=== PATIENT | male | born 1995 | race Two or more races ===

== ENCOUNTER 2020-07-23 23:16 | Emergency (ER) | payer OTHER, SELFPAY ==
[2020-07-23 23:19] VITALS: BP 148/105; PULSE 86; RESP 16; TEMP 36.3; O2SAT 98; BMI 33.3
--- NOTE | 2020-07-24 00:12 | ED_ITS ---
HPI - Back Pain/Injury General Chief Complaint: Back Pain/Injury Stated Complaint: Back Pain Time Seen by Provider: 07/24/20 00:11 History of Present Illness HPI Narrative: Patient is a 24-year-old male works and a [employer]. Lots of lifting at work. Complaining of lower back pain. There is no bowel urinary incontinence. Today's no focal weakness. Patient denies any radiation of pain down the legs. No fever no chills no cough no congestion or upper respiratory symptoms. No history of IV drug use no point tenderness. Patient from home. No trauma Related Data Previous Rx's Medication Instructions Recorded carisoprodol [Soma] 350 mg PO TID PRN #20 tab 07/24/20 ibuprofen 400 mg PO Q6H PRN #20 tab 07/24/20 Allergies Allergy/AdvReac Type Severity Reaction Status Date / Time feathers [FEATHERS] Allergy Unknown UNKNOWN Unverified 05/04/20 16:36 [place] [LIMES] Allergy Unknown UNKNOWN Unverified 05/04/20 16:36 Review of Systems Review of Systems: Constitutional: No Weight loss, No Fever, No Chills, No Night Sweats, No Fatigue, No Malaise ENT/Mouth: No Hearing loss, No Ear Pain, No Nasal Congestion, No Sinus Pain, No Hoarseness, No sore throat, No Rhinorrhea, No Swallowing Difficulty Eyes: No Eye Pain, No Swelling, No Redness, No Foreign Body, No Discharge, No Vision Changes Cardiovascular: No Chest Pain, No SOB, No Dyspnea on Exertion, No Orthopnea, No Edema, No Palpitations Respiratory: No Cough, No Sputum, No Wheezing, No Smoke Exposure, No Dyspnea Gastrointestinal: No Nausea, No Vomiting, No Diarrhea, No Constipation, No abdominal Pain, No Hematochezia, No Melena Genitourinary: no irregular bleeding, No Dysuria, No Urinary Frequency, No Hematuria, No Urinary Incontinence, No Urgency, No Flank Pain, No Urinary Flow Changes, No Hesitancy Musculoskeletal: No joint pain, No Myalgias, No Joint Swelling Skin: No Skin Lesions, No rash Neuro: No Weakness, No Numbness, No Paresthesias, No Loss of Consciousness, No Dizziness, No Headache Psych: No Anxiety/Panic, No Depression, No SI/HI/AH/VH, No Social Issues, Heme/Lymph: No Bruising, No Bleeding,No Lymphadenopathy Endocrine: No Polyuria, No Polydipsia, No Temperature Intolerance [facility] Past Medical History Medical History Asthma Lumbar sprain Social History Social History Advance Directives: No Advance Directives Information Provided: Yes Physical Exam Vital Signs: Vital Signs: Last Vital Signs Temp 97.3 F 07/23/20 23:19 Pulse 86 07/23/20 23:19 Resp 16 07/23/20 23:19 BP 148/105 H 07/23/20 23:19 Pulse Ox 98 07/23/20 23:19 Body Mass Index 33.3 Appearance: Alert. Oriented X3. No acute distress. Eyes: Pupils equal, round and reactive to light. ENT: Pharynx normal. Neck: Normal inspection. Neck supple. No lymph nodes noted. No crepitus CVS: Normal heart rate and rhythm. Pulses normal. Normal S1 and S2 Respiratory: No respiratory distress. Breath sounds normal. No Wheezing. No rales Abdomen: Soft and nontender. No rigidity. No distention. good BS x4 Skin: Skin warm and dry. Normal skin color. Normal skin turgor. Extremities: No lower extremity edema. Neurovascular intact to all extremities. No Lacerations. No Rash Neuro: Oriented X 3. No motor deficit. No sensory deficit. Moving all extermities. No slurred speech. Sensation in the lower extremity intact bilaterally. Examination of the back showed no point spinal tenderness. Positive paraspinal muscle tenderness elicited. MDM - Back Pain/Injury MDM Narrative Medical decision making narrative: Patient has no trauma no bowel urinary incontinence no focal weakness. No evidence for cord acquire and a. will discharge patient home with some pain medication. Muscle relaxant. Close follow-up on an outpatient basis. A few days off from work. In stable condition. Differential Diagnosis Differential diagnosis: Likely lumbar radiculopathy and strain of lumbar region Discharge Plan Discharge Clinical Impression: Strain of lumbar region Patient Disposition: Home, Self-Care Instructions: Acute Low Back Pain (ED) Prescriptions: New ibuprofen 400 mg tablet 400 mg PO Q6H PRN (Reason: pain) Qty: 20 RF: 0 carisoprodol [Soma] 350 mg tablet 350 mg PO TID PRN (Reason: muscle pain) Qty: 20 RF: 0 Stand Alone Forms: Work/School Release
== END 2020-07-24 00:24 | disposition home or self-care (01) ==
PROVIDERS: Emergency Provider Emergency Medicine Emergency Medical Services
DX: S39.012A Strain of muscle, fascia and tendon of lower back, initial encounter (principal); X50.0XXA Overexertion from strenuous movement or load, initial encounter; Y93.9 Activity, unspecified; Y92.59 Other trade areas as the place of occurrence of the external cause; Y99.0 Civilian activity done for income or pay
CPT/HCPCS: 99283

== ENCOUNTER 2020-10-29 21:48 | Emergency (ER) | payer OTHER, SELFPAY ==
--- NOTE | ~2020-10-29 | XR_ITS ---
EXAMINATION: XR CHEST CLINICAL INFORMATION: Wheezing and cough. COMPARISON: None TECHNIQUE: Frontal portable view of the chest was obtained. 10:41 PM FINDINGS: No significant abnormality is noted involving the heart, lungs, mediastinum, bony thorax or soft tissues. XR/XR chest 1V IMPRESSION: Unremarkable examination.
[2020-10-29 21:52] VITALS: PULSE 76; RESP 18; TEMP 36.4; O2SAT 98; BMI 38.9
--- NOTE | 2020-10-29 22:48 | ED.ASTHMA ---
HPI - Asthma General Chief Complaint: Asthma Stated Complaint: Asthma Time Seen by Provider: 10/29/20 22:45 Source: patient Mode of arrival: ambulatory History of Present Illness HPI Narrative: This is a 25-year-old male with history of asthma comes in with mild symptoms increasing over the past couple of days without associated fevers, chills, sore throat, cough but describes some mild chest tightness without recent travel or calf swelling/tenderness. In addition, he denies any GI or symptoms. Related Data Previous Rx's Medication Instructions Recorded albuterol sulfate [Ventolin HFA] 2 puff INHALATION Q4-6H PRN #1 ea 10/30/20 Allergies Allergy/AdvReac Type Severity Reaction Status Date / Time [place] [LIMES] Allergy Severe Anaphylaxis Verified 10/29/20 21:51 feathers [FEATHERS] Allergy Mild Rash Verified 10/29/20 21:51 Review of Systems Review of Systems: Pertinent positives and negatives as stated in HPI 10 point review of systems is otherwise negative. PMFSH Past Medical History Source: nursing notes reviewed Medical History Anxiety Asthma Lumbar sprain Social History Social History Smoking Status: Current every day smoker Use of substances other than those prescribed or required for medical reasons: Yes Substance Use Type: Marijuana Substance Use Frequency: Occasionally Advance Directives: No Advance Directives Information Provided: Yes Physical Exam Vital Signs: Vital Signs: Last Vital Signs Temp 97.5 F 10/29/20 21:52 Pulse 76 10/29/20 21:52 Resp 18 10/29/20 21:52 Pulse Ox 98 10/29/20 21:52 Body Mass Index 38.9 VITAL SIGNS: Reviewed. GENERAL: Well developed, well nourished, in no acute distress. HEAD: Normocephalic/atraumatic, NOSE: Nares patent bilateral OROPHARYNX: no oral lesions noted, posterior pharynx clear NECK: Supple, no adenopathy LUNGS: Minimal wheeze on expiration without tachypnea, hypoxia and currently is able to speak in full sentences SpO2<98> CARDIOVASCULAR: Regular rate and rhythm without noted murmurs ABDOMEN: Soft, non-tender, non-distended with bowel sounds. NEUROLOGIC: Alert and oriented x 4. Course Course Course Narrative: This is a 25-year-old male with history and clinical presentation consistent with missed medication for underlying asthma presentation not consistent with acute exacerbation, will provide albuterol treatment here in the emergency department and ensure the patient has an inhaler at the time of discharge. On re-evaluation patient reports complete resolution of symptoms and on focal exam no evidence of wheezing. He was discharged in stable condition. Discharge Plan Discharge Clinical Impression: Asthma Qualifiers: Asthma severity: mild Asthma persistence: unspecified Asthma complication type: uncomplicated Qualified Code(s): J45.909 - Unspecified asthma, uncomplicated Patient Disposition: Home, Self-Care Instructions: Asthma (ED) Additional Instructions: Do not hesitate to return to the emergency department should you experience any acute worsening of your symptoms. Prescriptions: New albuterol sulfate [Ventolin HFA] 90 mcg/actuation HFA aerosol inhaler 2 puff inhalation Q4-6H PRN (Reason: shortness of breath or wheezing) Qty: 1 RF: 0 Referrals: Charity Hill MD [Primary Care Provider] - 2 days (Re-evaluation for asthma)
[2020-10-29] MEDS: Albuterol Sulfate 90 MCG 8 GM INHALER 4 PUFF INHALE (23:05)
== END 2020-10-30 00:48 | disposition home or self-care (01) ==
PROVIDERS: Emergency Provider Student in an Organized Health Care Education/Training Program; PCP Internal Medicine
DX: J45.909 Unspecified asthma, uncomplicated (principal); F12.90 Cannabis use, unspecified, uncomplicated; F17.200 Nicotine dependence, unspecified, uncomplicated; Z91.14 Patient's other noncompliance with medication regimen; Z71.6 Tobacco abuse counseling; Z79.899 Other long term (current) drug therapy
CPT/HCPCS: 71045; 99284

== ENCOUNTER 2021-01-01 01:37 | Emergency (ER) | payer OTHER, SELFPAY ==
[2021-01-01 01:42] VITALS: BP 136/88; PULSE 80; RESP 16; TEMP 36.9; O2SAT 96; BMI 33.3
--- NOTE | 2021-01-01 02:03 | ED_ITS ---
HPI - SOB/Dyspnea General Chief Complaint: Dyspnea Stated Complaint: asthma Time Seen by Provider: 01/01/21 01:58 Source: patient Mode of arrival: ambulatory Limitations: no limitations History of Present Illness HPI Narrative: Patient comes emergency room complaining of an asthma exacerbation. Patient states over last 2 days, he has been having seasonal allergies which have been triggering his asthma. Patient complaining of itchy eyes. Patient states he only has an albuterol inhaler, has not been taking nebulizations or prednisone. Patient denies chest pain. Related Data Previous Rx's Medication Instructions Recorded albuterol sulfate [Ventolin HFA] 2 puff INHALATION Q4-6H PRN #1 ea 10/30/20 albuterol sulfate 2 inh INHALATION Q4H PRN #1 ea 01/01/21 prednisone 50 mg PO DAILY #4 tab 01/01/21 Allergies Allergy/AdvReac Type Severity Reaction Status Date / Time [place] [LIMES] Allergy Severe Anaphylaxis Verified 10/29/20 21:51 feathers [FEATHERS] Allergy Mild Rash Verified 10/29/20 21:51 Review of Systems Review of Systems: Constitutional : No Weight loss, No Fever, No Chills, No Night Sweats, No Fatigue, No Malaise ENT/Mouth : No Hearing loss, No Ear Pain, mild Nasal Congestion, No Sinus Pain, No Hoarseness, No sore throat, No Rhinorrhea, No Swallowing Difficulty, complaining of itchy eyes Eyes: No Eye Pain, No Swelling, No Redness, No Foreign Body, No Discharge, No Vision Changes Cardiovascular : No Chest Pain, No SOB, No Dyspnea on Exertion, No Orthopnea, No Edema, No Palpitations Respiratory : No Cough, No Sputum, complaining of, No Smoke Exposure, No Dyspnea Gastrointestinal : No Nausea, No Vomiting, No Diarrhea, No Constipation, No abdominal Pain, No Hematochezia, No Melena Genitourinary : no irregular bleeding, No Dysuria, No Urinary Frequency, No Hematuria, No Urinary Incontinence, No Urgency, No Flank Pain, No Urinary Flow Changes, No Hesitancy Musculoskeletal : No joint pain, No Myalgias, No Joint Swelling Skin : No Skin Lesions, No rash Neuro : No Weakness, No Numbness, No Paresthesias, No Loss of Consciousness, No Dizziness, No Headache Psych : No Anxiety/Panic, No Depression, No SI/HI/AH/VH, No Social Issues, Heme/Lymph: No Bruising, No Bleeding,No Lymphadenopathy Endocrine : No Polyuria, No Polydipsia, No Temperature Intolerance [facility] Past Medical History Medical History Anxiety Asthma Lumbar sprain Social History Social History Alcohol intake: never Smoking Status: Current every day smoker Smoked in Last 30 Days: Yes Use of substances other than those prescribed or required for medical reasons: Yes Substance Use Type: Marijuana Substance Use Frequency: Occasionally Advance Directives: No Advance Directives Information Provided: No Physical Exam Vital Signs: Vital Signs: Last Vital Signs Temp 98.5 F 01/01/21 01:42 Pulse 66 01/01/21 02:19 Resp 16 01/01/21 01:42 BP 136/88 01/01/21 01:42 Pulse Ox 96 01/01/21 01:42 Body Mass Index 33.3 Course Course Course Narrative: Patient states that he feels much better. On physical exam patient is no longer wheezing, oxygen saturation 99% on room air Discharge Plan Discharge Clinical Impression: Asthma with exacerbation Qualifiers: Asthma severity: unspecified severity Asthma persistence: unspecified Qualified Code(s): J45.901 - Unspecified asthma with (acute) exacerbation Patient Disposition: Home, Self-Care Instructions: Asthma (ED) Additional Instructions: Please follow-up with your primary care physician tomorrow. If you have any worsening or new symptoms, please return to the emergency room or call 911 Prescriptions: New albuterol sulfate 90 mcg/actuation aerosol powdr breath activated 2 inh inhalation Q4H PRN (Reason: shortness of breath or wheezing) Qty: 1 RF: 0 prednisone 50 mg tablet 50 mg PO DAILY Qty: 4 RF: 0 No Action albuterol sulfate [Ventolin HFA] 90 mcg/actuation HFA aerosol inhaler 2 puff inhalation Q4-6H PRN (Reason: shortness of breath or wheezing) Qty: 1 RF: 0
[2021-01-01] MEDS: predniSONE 20 MG TABLET 60 MG PO (02:07)
[2021-01-01] MEDS: Albuterol Sulfate (0.083%) 2.5 MG/3 ML VIAL.NEB 5 MG INHALE (02:15)
[2021-01-01 02:19] VITALS: PULSE 66; O2SAT 100
== END 2021-01-01 04:09 | disposition home or self-care (01) ==
PROVIDERS: Emergency Provider Emergency Medicine
DX: J45.901 Unspecified asthma with (acute) exacerbation (principal); F17.200 Nicotine dependence, unspecified, uncomplicated; F12.90 Cannabis use, unspecified, uncomplicated; Z79.899 Other long term (current) drug therapy
CPT/HCPCS: 94640; 94644; 99284

== ENCOUNTER 2021-03-10 18:06 | Emergency (ER) | payer OTHER, SELFPAY ==
--- NOTE | ~2021-03-10 | XR_ITS ---
EXAMINATION: XR RIBS, LEFT CLINICAL INFORMATION: Left-sided rib pain COMPARISON: Chest radiograph 10/29/2020 TECHNIQUE: Single view chest with 3 views of the left ribs were obtained. FINDINGS: Lungs are clear. No consolidation, pneumothorax, or pleural effusion. The cardiomediastinal silhouette and pulmonary vasculature are normal. Osseous structures are unremarkable. Ribs are intact. No fractures are identified. XR/XR ribs LT min 3V w CXR1V IMPRESSION: Unremarkable examination.
[2021-03-10 18:22] VITALS: BP 137/80; PULSE 93; RESP 20; TEMP 36.4; O2SAT 96; BMI 34.9
--- NOTE | 2021-03-10 18:51 | ECG_ITS ---
Test Reason : CHEST PAIN Blood Pressure : / mmHG Vent. Rate : 074 BPM Atrial Rate : 074 BPM P-R Int : 138 ms QRS Dur : 098 ms QT Int : 370 ms P-R-T Axes : 051 004 012 degrees QTc Int : 410 ms Normal sinus rhythm Normal ECG When compared with ECG of 12-AUG-2019 09:38, No significant change was found Referred By: Juan Daniel Zafar Electronically Signed By:ANUP LAURA MD
--- NOTE | 2021-03-10 19:14 | ED_ITS ---
HPI - General Adult General Chief complaint: General Medical Stated complaint: rib pain Time Seen by Provider: 03/10/21 18:51 History of Present Illness HPI narrative: Patient complains of intermittent stinging, dull chest pain accompanied by a tingly feeling in the chest wall for the past 4 days, the pain lasts half an hour , it is not provoked by anything it is not related to exertion or eating, there is no abdomen pain there is no nausea or vomiting there is no shortness of breath no difficulty breathing no pleuritic pain, it does not hurt to change positions, no cough, no recent injury to the chest wall, no dizziness no weakness no fainting no feeling faint no radiation of the pain He has no pain now but is concerned about the frequent episodes Related Data Previous Rx's Medication Instructions Recorded albuterol sulfate [Ventolin HFA] 2 puff INHALATION Q4-6H PRN #1 ea 10/30/20 albuterol sulfate 2 inh INHALATION Q4H PRN #1 ea 01/01/21 prednisone 50 mg PO DAILY #4 tab 01/01/21 ibuprofen 600 mg PO Q6H PRN #20 tab 03/10/21 Allergies Allergy/AdvReac Type Severity Reaction Status Date / Time elim [place] [LIMES] Allergy Severe Anaphylaxis Verified 10/29/20 21:51 feathers [FEATHERS] Allergy Mild Rash Verified 10/29/20 21:51 Review of Systems Review of Systems: Positive for left lower chest pain Negatives no fever no chills no dizziness no weakness no fainting no feeling faint no palpitations no shortness of breath no exertional symptoms no nausea no vomiting no sweating no pain with a deep breath no sore throat no cough no sputum no leg pain no calf pain no leg swelling no skin rash no abdominal pain Yes all other systems are reviewed and are negative PMFSH Past Medical History Source: nursing notes reviewed Medical History Anxiety Asthma Lumbar sprain Social History Social History Alcohol intake: never Substance Use Type: Marijuana Advance Directives: No Advance Directives Information Provided: No Physical Exam Vital Signs: Vital Signs: Last Vital Signs Temp 97.5 F 03/10/21 18:22 Pulse 93 03/10/21 18:22 Resp 20 03/10/21 18:22 BP 137/80 03/10/21 18:22 Pulse Ox 96 03/10/21 18:22 Body Mass Index 34.9 General appearance no acute distress The neck is supple Chest is clear to auscultation bilateral, lung sounds are full clear and equal The chest wall did have tenderness in a spot in the lateral lower aspect of the chest wall with reproducible tenderness, there was no pleuritic pain with deep breath and no obvious movement that provoke pain, the skin was normal without rash Abdomen soft nontender Extremities full range of motion x4 There was no pedal edema the, there was no calf tenderness or swelling Skin no rashes Course Course Course Narrative: Chest x-ray was normal Heart score was normal EKG was a normal sinus rhythm without acute ischemic changes no ST changes, rate was 74, intervals were normal axis was normal Troponin was normal, done once as patient had no pain now and last episode was several hours ago Patient likely has inflammation of muscle or cartilage in chest wall and is discharge diagnosis chest wall pain Medical Decision Making Lab Data Labs: Lab Results 03/10/21 Range/Units 19:04 Troponin I High Sens < 3.5 (<3.5-35.0) ng/L Discharge Plan Discharge Clinical Impression: Chest wall pain Patient Disposition: Home, Self-Care Additional Instructions: Pain is likely from inflammation of muscle or cartilage in chest wall Our workup today did not show any dangerous underlying condition EKG was normal, troponin testing to rule out heart attack was normal, your symptoms are likely musculoskeletal Return to ER any time any changed or worse condition Follow with primary doctor for further evaluation Prescriptions: New ibuprofen 600 mg tablet 600 mg PO Q6H PRN (Reason: pain) Qty: 20 RF: 0 No Action albuterol sulfate [Ventolin HFA] 90 mcg/actuation HFA aerosol inhaler 2 puff inhalation Q4-6H PRN (Reason: shortness of breath or wheezing) Qty: 1 RF: 0 albuterol sulfate 90 mcg/actuation aerosol powdr breath activated 2 inh inhalation Q4H PRN (Reason: shortness of breath or wheezing) Qty: 1 RF: 0 prednisone 50 mg tablet 50 mg PO DAILY Qty: 4 RF: 0
[2021-03-10 19:44] LABS: Troponin-I High Sensitivity < 3.5 ng/L (<3.5-35.0)
== END 2021-03-10 21:04 | disposition home or self-care (01) ==
PROVIDERS: Physician Assistant Medical; Emergency Provider Emergency Medicine
DX: R07.89 Other chest pain (principal); J45.909 Unspecified asthma, uncomplicated; F12.90 Cannabis use, unspecified, uncomplicated; Z79.899 Other long term (current) drug therapy
CPT/HCPCS: 36415; 71101; 84484; 93005; 99283

== ENCOUNTER 2021-03-15 17:10 | Emergency (ER) | payer OTHER, SELFPAY ==
[2021-03-15 17:40] VITALS: BP 132/98; PULSE 78; RESP 20; TEMP 36.6; O2SAT 99; BMI 33.3
--- NOTE | 2021-03-15 18:45 | ED_ITS ---
HPI - Anxiety General Chief Complaint: Anxiety Stated Complaint: mutiple complaints Time Seen by Provider: 03/15/21 17:51 Source: patient Mode of arrival: ambulatory Limitations: no limitations History of Present Illness HPI narrative: 25-year-old pleasant male with history of anxiety and depression who presents ambulatory with complaint of increased anxiety over the past several days inability to sleep. 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 States he does have psychiatry team that prescribe some medication in the past however he has not seen him as he was doing well. States he called them he is waiting appointment. He otherwise denies any recent illness, denies any suicidal/homicidal ideation. Denies any illicit drug use. complaint: anxiety Onset (ago): day(s) Severity: moderate Quality: constant Place: home History of similar episodes: Yes Provoking factors: emotional stress Relieving factors: nothing Exacerbating factors: other Associated symptoms: denies other symptoms Related Data Previous Rx's Medication Instructions Recorded albuterol sulfate 90 mcg/actuation 2 puff INHALATION Q4-6H PRN #1 ea 10/30/20 aerosol inhaler (Ventolin HFA) albuterol sulfate 90 mcg/actuation 2 inh INHALATION Q4H PRN #1 ea 01/01/21 breath activated powder inhaler prednisone 50 mg tablet 50 mg PO DAILY #4 tab 01/01/21 ibuprofen 600 mg tablet 600 mg PO Q6H PRN #20 tab 03/10/21 hydroxyzine HCl 50 mg tablet 50 mg PO BEDTIME PRN #14 tab 03/15/21 Allergies Allergy/AdvReac Type Severity Reaction Status Date / Time [place] [LIMES] Allergy Severe Anaphylaxis Verified 10/29/20 21:51 feathers [FEATHERS] Allergy Mild Rash Verified 10/29/20 21:51 Review of Systems Review of Systems: Constitutional: No Weight loss, No Fever, No Chills, No Night Sweats, No Fatigue, No Malaise ENT/Mouth: No Hearing loss, No Ear Pain, No Nasal Congestion, No Sinus Pain, No Hoarseness, No sore throat, No Rhinorrhea, No Swallowing Difficulty Eyes: No Eye Pain, No Swelling, No Redness, No Foreign Body, No Discharge, No Vision Changes Cardiovascular: No Chest Pain, No SOB, No Dyspnea on Exertion, No Orthopnea, No Edema, No Palpitations Respiratory: No Cough, No Sputum, No Wheezing, No Smoke Exposure, No Dyspnea Gastrointestinal: No Nausea, No Vomiting, No Diarrhea, No Constipation, No abdominal Pain, No Hematochezia, No Melena Musculoskeletal: No joint pain, No Myalgias, No Joint Swelling Skin: No Skin Lesions, No rash Neuro: No Weakness, No Numbness, No Paresthesias, No Loss of Consciousness, No Dizziness, No Headache Psych: + Anxiety/Panic, No Depression, No SI/HI/AH/VH Heme/Lymph: No Bruising, No Bleeding,No Lymphadenopathy Endocrine: No Polyuria, No Polydipsia, No Temperature Intolerance PMF Past Medical History Medical History Anxiety Asthma Lumbar sprain Social History Social History Alcohol intake: never Substance Use Type: Marijuana Advance Directives: No Advance Directives Information Provided: No Physical Exam Vital Signs: Vital Signs: Last Vital Signs Temp 97.8 F 03/15/21 17:40 Pulse 78 03/15/21 17:40 Resp 20 03/15/21 17:40 BP 132/98 H 03/15/21 17:40 Pulse Ox 99 03/15/21 17:40 Body Mass Index 33.3 Const: General: cooperative and healthy appearing; No acute distress or intoxicated appearing Nutritional Appearance: average body habitus Orientation/consciousness: patient oriented x3 HENMT: Head: Yes normal to inspection Ears: hearing grossly normal bilaterally Eyes: General: appearance normal, both eyes and all related structures Visual Brady: normal visual brady by confrontation Chest: Chest palpation & inspection: normal inspection of the chest Resp: Effort & Inspection: normal respiratory effort Cardio: Jugular venous distension: no JVD Skin: General skin exam: no rashes or lesions noted Neuro: General: patient oriented x3 Course Reevaluation(s) Reevaluation #1: While nontoxic appearing. Often the medical complaints. Will start on hydroxyzine p.r.n. for bedtime, supportive care, refer to care team, has appointment with his therapist for medication. Discharge Plan Discharge Clinical Impression: Acute anxiety Patient Disposition: Home, Self-Care Instructions: Anxiety (ED) Additional Instructions: Rest Drink plenty fluids Supportive care discussed Take medication prescribed Follow up with her psychiatry team as plan Return if any concerns or worsening symptoms Thank you Prescriptions: New hydroxyzine HCl 50 mg tablet 50 mg PO BEDTIME PRN (Reason: Anxiety/ sleep) Qty: 14 RF: 0 No Action albuterol sulfate [Ventolin HFA] 90 mcg/actuation HFA aerosol inhaler 2 puff inhalation Q4-6H PRN (Reason: shortness of breath or wheezing) Qty: 1 RF: 0 albuterol sulfate 90 mcg/actuation aerosol powdr breath activated 2 inh inhalation Q4H PRN (Reason: shortness of breath or wheezing) Qty: 1 RF: 0 prednisone 50 mg tablet 50 mg PO DAILY Qty: 4 RF: 0 ibuprofen 600 mg tablet 600 mg PO Q6H PRN (Reason: pain) Qty: 20 RF: 0 Referrals: ED Physician,Generic [Emergency Provider] - 2 days
== END 2021-03-15 19:06 | disposition home or self-care (01) ==
PROVIDERS: Emergency Provider Internal Medicine
DX: F41.1 Generalized anxiety disorder (principal); F43.0 Acute stress reaction; F12.90 Cannabis use, unspecified, uncomplicated; F33.1 Major depressive disorder, recurrent, moderate; Z79.899 Other long term (current) drug therapy
CPT/HCPCS: 99283

== ENCOUNTER 2021-03-21 05:28 | Emergency (ER) | payer OTHER, SELFPAY ==
[2021-03-21 05:38] VITALS: BP 142/89; PULSE 87; RESP 20; TEMP 36.9; O2SAT 98; BMI 34.9
--- NOTE | 2021-03-21 06:17 | PC.NURSE ---
IV established, labs obtained, pt medicated per OCT. Pt unable to provide urine sample at this time. Pt aware of plan to await lab results.
[2021-03-21 06:18] LABS: Basophils Percent Auto 0.3 % (0-2); Eosinophils Absolute Auto 0.2 X10*3/uL (0.0-0.4); Eosinophils Percent Auto 1.9 % (0-4); Hemoglobin 15.7 g/dl (14.0-18.0); Imm Gran Abs Auto 0.02 X10*3/uL (0.00-0.03); Imm Gran Pct Auto 0.2 % (0.0-0.4); Lymphocytes Absolute Auto 1.6 X10*3/uL (1.2-4.9); MANUAL DIFF FLAG NO; Mean Corpuscular HGB Conc 34.9 g/dl (31.0-36.0); Mean Platelet Volume 10.7 fL (9.4-12.4); Monocytes Absolute Auto 0.8 X10*3/uL (0.1-1.2); Monocytes Percent Auto 9.2 % (2-11); Neutrophils Percent Auto 69.4 % (45-73); Platelet Count 214 X10*3/uL (160-400); Red Blood Count 5.23 X10*6/uL (4.60-5.80); Red Cell Distribution Width 12.1 % (11.0-16.0); White Blood Count 8.6 X10*3/uL (4.8-10.8)
--- NOTE | 2021-03-21 06:36 | ED_ITS ---
HPI - Nausea/Vomiting/Diarrhea General Chief complaint: Nausea/Vomiting/Diarrhea Stated complaint: Vomiting Time Seen by Provider: 03/21/21 06:36 Source: patient Mode of arrival: ambulatory Limitations: no limitations History of Present Illness HPI Narrative: Patient saw light tinge of blood in his vomit. Vomitted 7 times developed slight blood tinge after forceful vomiting. No diarrhea, no fever. MD elicited complaint: nausea and vomiting Onset (ago): hour(s) Description of vomiting: blood-streaked Associated nausea: Yes Associated abdominal pain: Yes Related Data Previous Rx's Medication Instructions Recorded albuterol sulfate 90 mcg/actuation 2 puff INHALATION Q4-6H PRN #1 ea 10/30/20 aerosol inhaler (Ventolin HFA) albuterol sulfate 90 mcg/actuation 2 inh INHALATION Q4H PRN #1 ea 01/01/21 breath activated powder inhaler prednisone 50 mg tablet 50 mg PO DAILY #4 tab 01/01/21 ibuprofen 600 mg tablet 600 mg PO Q6H PRN #20 tab 03/10/21 hydroxyzine HCl 50 mg tablet 50 mg PO BEDTIME PRN #14 tab 03/15/21 ondansetron HCl 4 mg tablet 4 mg PO Q8H PRN #10 tab 03/21/21 (Zofran) pantoprazole 40 mg tablet,delayed 40 mg PO DAILY #20 tab 03/21/21 release (Protonix) Allergies Allergy/AdvReac Type Severity Reaction Status Date / Time [place] [LIMES] Allergy Severe Anaphylaxis Verified 10/29/20 21:51 feathers [FEATHERS] Allergy Mild Rash Verified 10/29/20 21:51 Review of Systems Constitutional: Constitutional: Reports no additional constitutional complaints Eyes: Eyes: Reports no additional eye complaints ENT: Denies dizziness Cardiovascular: Cardiovascular: Reports no additional cardiovascular complaints Respiratory: Respiratory: Reports as per HPI Gastrointestinal: Gastrointestinal: Reports nausea Musculoskeletal: Musculoskeletal: Reports no additional musculoskeletal complaints Integumentary/Breasts: Skin/Breast: Denies rash Neurologic: Reports system reviewed and no additional complaints, except as documented, Denies dizziness and Denies Sensory deficit (Neuro) Psychiatric: Psychiatric: Denies anxiety PMFSH Past Medical History Medical History Anxiety Asthma Lumbar sprain Social History Social History Alcohol intake: never Patient Tobacco Use Status: Current everyday Tobacco user Use of substances other than those prescribed or required for medical reasons: No Substance Use Type: Marijuana Advance Directives: No Advance Directives Information Provided: No Physical Exam Vital Signs: Vital Signs: Last Vital Signs Temp 98.8 F 03/21/21 08:10 Pulse 68 03/21/21 08:10 Resp 17 03/21/21 08:10 BP 126/77 03/21/21 08:10 Pulse Ox 98 03/21/21 08:10 Body Mass Index 34.9 Const: General: healthy appearing Nutritional Appearance: average body habitus Orientation/consciousness: oriented to person and patient oriented x3 Limitations: no limitations HENMT: Head: Yes normal to inspection Ears: external ears normal General nose exam: Normal external nose present Mouth: Normal oral and palatal mucosa present and oropharynx normal Throat: Yes posterior oropharynx normal Eyes: General: appearance normal, both eyes and all related structures Neck: Other: supple Neck: Yes normal visual inspection Chest: Chest palpation & inspection: normal inspection of the chest Resp: Auscultation: clear to auscultation bilaterally Cardio: Jugular venous distension: no JVD Rate: regular rate Rhythm: regular rhythm Heart sounds: S1 normal heart sound present and S2 normal heart sound present GI: Inspection: Yes normal to inspection Palpation (GI): Soft to palpation, nontender and No hepatosplenomegaly present Auscultation: normal bowel sounds : General: Yes no CVA tenderness Back/Spine/Pelvis: Back: no CVA tenderness Skin: General skin exam: no rashes or lesions noted Neuro: General: oriented to person and patient oriented x3 Cranial nerves: Yes CN's II-XII intact bilaterally Motor exam (neuro): 5/5 motor strength present throughout Sensory Exam: No Sensory deficit (Neuro) Extrem: General: Yes normal to inspection Psych: Appearance: grossly normal Course Reevaluation(s) Reevaluation #1: patient with normal labs no evidence of bleeding will dc home with gastritis. Will dc home on protonix and zofran Time: 08:45 MDM - Nausea/Vomiting/Diarrhea Lab Data Result diagrams: 03/21/21 06:14 03/21/21 06:14 Labs: Lab Results 03/21/21 03/21/21 Range/Units 06:14 06:14 WBC 8.6 (4.8-10.8) X10*3/uL RBC 5.23 (4.60-5.80) X10*6/uL Hgb 15.7 (14.0-18.0) g/dl Hct 45.0 (42-52) % MCV 86.0 (80-98) fL MCH 30.0 (27.0-33.0) pg MCHC 34.9 (31.0-36.0) g/dl RDW 12.1 (11.0-16.0) % Plt Count 214 (160-400) X10*3/uL MPV 10.7 (9.4-12.4) fL Immature Gran % (Auto) 0.2 (0.0-0.4) % Neut % (Auto) 69.4 (45-73) % Lymph % (Auto) 19.0 L (20-40) % [place] % (Auto) 9.2 (2-11) % Eos % (Auto) 1.9 (0-4) % Baso % (Auto) 0.3 (0-2) % Lymph # (Auto) 1.6 (1.2-4.9) X10*3/uL [place] # (Auto) 0.8 (0.1-1.2) X10*3/uL Eos # (Auto) 0.2 (0.0-0.4) X10*3/uL Baso # (Auto) 0.0 (0.0-0.2) X10*3/uL Abs Immat Gran (auto) 0.02 (0.00-0.03) X10*3/uL Absolute Neuts (auto) 6.0 (2.0-8.3) X10*3/uL Absolute Nucleated RBC 0.000 (0.0-0.012) X10*3/uL Nucleated RBC % (auto) 0.0 (0.0-0.2) /100WBC Sodium 140 (135-145) mmol/L Potassium 3.9 (3.3-5.1) mmol/L Chloride 104 (96-108) mmol/L Carbon Dioxide 26 (22-29) mmol/L Anion Gap 14 (12-20) BUN 13 (9-16) mg/dL Creatinine 1.05 (0.5-1.4) mg/dL Estim Creat Clear Calc 116.0 Estimated GFR > 60 Random Glucose 105 (60-115) mg/dL Calcium 9.9 (8.4-10.2) mg/dL Total Bilirubin 0.3 (0.0-1.0) mg/dL Direct Bilirubin < 0.2 (0.0-0.5) mg/dL AST 24 (5-37) U/L ALT 23 (0-40) U/L Alkaline Phosphatase 100 (39-117) U/L Total Protein 7.2 (6.5-8.0) g/dL Albumin 4.8 (3.5-5.0) g/dL Lipase 19 (8-78) U/L Discharge Plan Discharge Clinical Impression: Gastritis Qualifiers: Gastritis type: unspecified gastritis Chronicity: acute Gastritis bleeding: with bleeding Qualified Code(s): K29.01 - Acute gastritis with bleeding Vomiting Qualifiers: Vomiting type: unspecified Vomiting Intractability: non-intractable Nausea presence: with nausea Qualified Code(s): R11.2 - Nausea with vomiting, unspecified Patient Disposition: Home, Self-Care Instructions: Gastritis (ED), Acute Nausea and Vomiting (ED) Prescriptions: New ondansetron HCl [Zofran] 4 mg tablet 4 mg PO Q8H PRN (Reason: nausea and vomiting) Qty: 10 RF: 0 pantoprazole [Protonix] 40 mg tablet,delayed release (DR/EC) 40 mg PO DAILY Qty: 20 RF: 0 No Action albuterol sulfate [Ventolin HFA] 90 mcg/actuation HFA aerosol inhaler 2 puff inhalation Q4-6H PRN (Reason: shortness of breath or wheezing) Qty: 1 RF: 0 hydroxyzine HCl 50 mg tablet 50 mg PO BEDTIME PRN (Reason: Anxiety/ sleep) Qty: 14 RF: 0 albuterol sulfate 90 mcg/actuation aerosol powdr breath activated 2 inh inhalation Q4H PRN (Reason: shortness of breath or wheezing) Qty: 1 RF: 0 prednisone 50 mg tablet 50 mg PO DAILY Qty: 4 RF: 0 ibuprofen 600 mg tablet 600 mg PO Q6H PRN (Reason: pain) Qty: 20 RF: 0
--- NOTE | 2021-03-21 06:36 | PC.NURSE ---
at bedside for primary eval.
[2021-03-21] MEDS: Pantoprazole Sodium 40 MG/10 ML VIAL IVPUSH (06:46)
[2021-03-21 06:49] LABS: Alanine Aminotransferase 23 U/L (0-40); Albumin Level 4.8 g/dL (3.5-5.0); Alkaline Phosphatase 100 U/L (39-117); Anion Gap 14 (12-20); Aspartate Amino Transferase 24 U/L (5-37); Bilirubin Direct < 0.2 mg/dL (0.0-0.5); Bilirubin Total 0.3 mg/dL (0.0-1.0); Blood Urea Nitrogen 13 mg/dL (9-16); Calcium 9.9 mg/dL (8.4-10.2); Carbon Dioxide 26 mmol/L (22-29); Chloride 104 mmol/L (96-108); Estimated Glomerular Filt Rate > 60; Glucose Random 105 mg/dL (60-115); Lipase 19 U/L (8-78); Potassium 3.9 mmol/L (3.3-5.1); Sodium 140 mmol/L (135-145); Total Protein 7.2 g/dL (6.5-8.0)
[2021-03-21 08:10] VITALS: BP 126/77; PULSE 68; RESP 17; TEMP 37.1; O2SAT 98
[2021-03-21 09:06] LABS: Glucose Urine UA NEG (NEG); Leukocyte Esterase Urine NEG (NEG); Nitrite Urine NEG (NEG); Specific Gravity - Urine 1.025 (1.005-1.025); Urine Blood NEG (NEG); Urine Ketones NEG (NEG); Urine Protein TRACE MG/DL (NEG-TRACE)
[2021-03-21 09:08] LABS: Appearance Urine HAZY; Color Urine YELLOW
== END 2021-03-21 09:07 | disposition home or self-care (01) ==
PROVIDERS: Emergency Provider Emergency Medicine
DX: K29.01 Acute gastritis with bleeding (principal); R11.2 Nausea with vomiting, unspecified; F17.210 Nicotine dependence, cigarettes, uncomplicated; F12.90 Cannabis use, unspecified, uncomplicated
CPT/HCPCS: 36415; 80048; 80076; 81003; 83690; 85025; 96374; 96375; 99284; J2405

== ENCOUNTER 2021-03-23 04:36 | Emergency (ER) | payer OTHER, SELFPAY ==
--- NOTE | ~2021-03-23 | XR_ITS ---
EXAMINATION: XR CHEST CLINICAL INFORMATION: Chest pain COMPARISON: None TECHNIQUE: 2 views of the chest were obtained. FINDINGS: No significant abnormality is noted involving the heart, lungs, mediastinum, bony thorax or soft tissues. XR/XR chest 2V IMPRESSION: Unremarkable examination.
[2021-03-23 04:51] VITALS: BP 123/89; PULSE 70; RESP 16; TEMP 36.9; O2SAT 98; BMI 37.4
[2021-03-23 06:12] LABS: MANUAL DIFF FLAG NO
[2021-03-23 06:14] LABS: Basophils Absolute Auto 0.1 X10*3/uL (0.0-0.2); Basophils Percent Auto 0.5 % (0-2); Eosinophils Absolute Auto 0.3 X10*3/uL (0.0-0.4); Eosinophils Percent Auto 3.1 % (0-4); Hematocrit 45.1 % (42-52); Hemoglobin 15.7 g/dl (14.0-18.0); Imm Gran Abs Auto 0.02 X10*3/uL (0.00-0.03); Imm Gran Pct Auto 0.2 % (0.0-0.4); Lymphocytes Absolute Auto 2.3 X10*3/uL (1.2-4.9); Lymphocytes Percent Auto 25.2 % (20-40); Mean Corpuscular HGB Conc 34.8 g/dl (31.0-36.0); Mean Corpuscular Hemoglobin 30.4 pg (27.0-33.0); Mean Corpuscular Volume 87.2 fL (80-98); Mean Platelet Volume 10.5 fL (9.4-12.4); Monocytes Absolute Auto 1.1 X10*3/uL (0.1-1.2); Monocytes Percent Auto 11.4 % (2-11); Neutrophils Absolute Auto 5.5 X10*3/uL (2.0-8.3); Neutrophils Percent Auto 59.6 % (45-73); Platelet Count 225 X10*3/uL (160-400); Red Blood Count 5.17 X10*6/uL (4.60-5.80); Red Cell Distribution Width 12.4 % (11.0-16.0); White Blood Count 9.2 X10*3/uL (4.8-10.8)
[2021-03-23 06:36] LABS: Alanine Aminotransferase 24 U/L (0-40); Alkaline Phosphatase 98 U/L (39-117); Anion Gap 14 (12-20); Aspartate Amino Transferase 22 U/L (5-37); Bilirubin Direct 0.2 mg/dL (0.0-0.5); Bilirubin Total 0.5 mg/dL (0.0-1.0); Blood Urea Nitrogen 11 mg/dL (9-16); Carbon Dioxide 26 mmol/L (22-29); Chloride 104 mmol/L (96-108); Creatinine Clr Calc Pharmacy 121.4; Estimated Glomerular Filt Rate > 60; Glucose Random 99 mg/dL (60-115); Lipase 18 U/L (8-78); Potassium 3.8 mmol/L (3.3-5.1); Sodium 140 mmol/L (135-145); Total Protein 7.3 g/dL (6.5-8.0)
--- NOTE | 2021-03-23 07:16 | ED_ITS ---
HPI - Abdominal Pain General Chief Complaint: Abdominal Pain Stated Complaint: chest pain, puking Time Seen by Provider: 03/23/21 07:05 Source: patient Mode of arrival: ambulatory Limitations: no limitations History of Present Illness HPI narrative: 25-year-old male who presents emergency department for evaluation of nausea, vomiting and abdominal pain. Patient states that 2:00 a.m. in the morning he ate a hard-boiled a and yogurt. Shortly after eating this food he developed nausea and vomiting. He states that he vomited for approximately 5 minutes. After vomiting he developed a burning sensation in his abdomen. He points to his epigastric area. He describes the pain as a constant burning sensation which is 7/10 at its worst. Patient states this is 1st episode of this type pain. He denied being ill prior to the onset of the symptoms. He denied fever, chills, chest pain, shortness of breath, changes bowel movements, frequency, urgency or dysuria. Related Data Previous Rx's Medication Instructions Recorded albuterol sulfate 90 mcg/actuation 2 puff INHALATION Q4-6H PRN #1 ea 10/30/20 aerosol inhaler (Ventolin HFA) albuterol sulfate 90 mcg/actuation 2 inh INHALATION Q4H PRN #1 ea 01/01/21 breath activated powder inhaler prednisone 50 mg tablet 50 mg PO DAILY #4 tab 01/01/21 ibuprofen 600 mg tablet 600 mg PO Q6H PRN #20 tab 03/10/21 hydroxyzine HCl 50 mg tablet 50 mg PO BEDTIME PRN #14 tab 03/15/21 ondansetron HCl 4 mg tablet 4 mg PO Q8H PRN #10 tab 03/21/21 (Zofran) pantoprazole 40 mg tablet,delayed 40 mg PO DAILY #20 tab 03/21/21 release (Protonix) Allergies Allergy/AdvReac Type Severity Reaction Status Date / Time [place] [LIMES] Allergy Severe Anaphylaxis Verified 10/29/20 21:51 feathers [FEATHERS] Allergy Mild Rash Verified 10/29/20 21:51 Review of Systems Review of Systems Yes all other systems are reviewed and are negative Physical Exam Vital Signs: Vital Signs: Last Vital Signs Temp 98.5 F 03/23/21 04:51 Pulse 70 03/23/21 04:51 Resp 16 03/23/21 04:51 BP 123/89 03/23/21 04:51 Pulse Ox 98 03/23/21 04:51 Body Mass Index 37.4 Const: General: cooperative and no acute distress Orientation/consciousness: oriented to person and oriented to place Limitations: no limitations HENMT: Head: Yes normal to inspection, Yes normocephalic and Yes atraumatic Ears: external ears normal General nose exam: Normal external nose present Face and sinus: Yes normal facial exam Mouth: Normal oral and palatal mucosa present Throat: Yes posterior oropharynx normal Eyes: General: appearance normal, both eyes and all related structures Pupils: Equal, round and reactive pupils present Neck: Neck: Yes normal visual inspection, Yes no lymphadenopathy, Yes trachea midline and Yes supple Chest: Chest palpation & inspection: normal inspection of the chest and normal palpation of entire chest wall Resp: Effort & Inspection: normal respiratory effort and able to speak in complete sentences Auscultation: clear to auscultation bilaterally Cardio: Rate: regular rate Rhythm: regular rhythm Heart sounds: S1 normal heart sound present, S2 normal heart sound present and no murmurs GI: Inspection: Yes normal to inspection Palpation (GI): Soft to palpation, nontender and no guarding Auscultation: normal bowel sounds : General: Yes no CVA tenderness Back/Spine/Pelvis: Back: no CVA tenderness Skin: General skin exam: no rashes or lesions noted Neuro: General: oriented to person and oriented to place Cranial nerves: Yes CN's II-XII intact bilaterally and Yes Equal, round and reactive pupils present Cognition (Neuro): normal cognition Motor exam (neuro): 5/5 motor strength present throughout Extrem: General: Yes normal to inspection Psych: Appearance: grossly normal Speech and movement: Normal speech and movement present Affect: normal affect Attitude: cooperative Thought process: Normal thought process present Thought content: Normal thought content present Course Course Course Narrative: 25-year-old male who presents emergency department for evaluation of vomiting and abdominal pain which began at 2:00 a.m. after he a hard-boiled egg any over. Vital signs were normal. The patient's physical examination revealed no abdominal tenderness. Patient's laboratory evaluation included a CBC, CMP, lipase, urinalysis, these tests were all normal. Patient had a chest x-ray which was unremarkable as well. At this time I do not have a clear etiology for the patient's sudden onset of vomiting. Patient's epigastric pain is most likely secondary to acid reflux. Patient has no symptoms at this time is exam is normal. He was advised to take antacids as needed. The patient was given verbal and printed instructions prior to discharge. The patient was advised to follow-up with his PCP in 2 days and to return to the emergency depa rtment if his symptoms get worse or if he develops any new symptoms that are concerning to him. MDM - Abdominal Pain Lab Data Result diagrams: 03/23/21 06:09 03/23/21 06:09 Labs: Lab Results 03/23/21 03/23/21 Range/Units 06:09 06:09 WBC 9.2 (4.8-10.8) X10*3/uL RBC 5.17 (4.60-5.80) X10*6/uL Hgb 15.7 (14.0-18.0) g/dl Hct 45.1 (42-52) % MCV 87.2 (80-98) fL MCH 30.4 (27.0-33.0) pg MCHC 34.8 (31.0-36.0) g/dl RDW 12.4 (11.0-16.0) % Plt Count 225 (160-400) X10*3/uL MPV 10.5 (9.4-12.4) fL Immature Gran % (Auto) 0.2 (0.0-0.4) % Neut % (Auto) 59.6 (45-73) % Lymph % (Auto) 25.2 (20-40) % [place] % (Auto) 11.4 H (2-11) % Eos % (Auto) 3.1 (0-4) % Baso % (Auto) 0.5 (0-2) % Lymph # (Auto) 2.3 (1.2-4.9) X10*3/uL [place] # (Auto) 1.1 (0.1-1.2) X10*3/uL Eos # (Auto) 0.3 (0.0-0.4) X10*3/uL Baso # (Auto) 0.1 (0.0-0.2) X10*3/uL Abs Immat Gran (auto) 0.02 (0.00-0.03) X10*3/uL Absolute Neuts (auto) 5.5 (2.0-8.3) X10*3/uL Absolute Nucleated RBC 0.000 (0.0-0.012) X10*3/uL Nucleated RBC % (auto) 0.0 (0.0-0.2) /100WBC Sodium 140 (135-145) mmol/L Potassium 3.8 (3.3-5.1) mmol/L Chloride 104 (96-108) mmol/L Carbon Dioxide 26 (22-29) mmol/L Anion Gap 14 (12-20) BUN 11 (9-16) mg/dL Creatinine 1.04 (0.5-1.4) mg/dL Estim Creat Clear Calc 121.4 Estimated GFR > 60 Random Glucose 99 (60-115) mg/dL Calcium 10.0 (8.4-10.2) mg/dL Total Bilirubin 0.5 (0.0-1.0) mg/dL Direct Bilirubin 0.2 (0.0-0.5) mg/dL AST 22 (5-37) U/L ALT 24 (0-40) U/L Alkaline Phosphatase 98 (39-117) U/L Total Protein 7.3 (6.5-8.0) g/dL Albumin 5.0 (3.5-5.0) g/dL Lipase 18 (8-78) U/L Discharge Plan Discharge Clinical Impression: Vomiting Qualifiers: Vomiting type: unspecified Vomiting Intractability: non-intractable Nausea presence: with nausea Qualified Code(s): R11.2 - Nausea with vomiting, unspecified Abdominal pain Qualifiers: Abdominal location: epigastric Qualified Code(s): R10.13 - Epigastric pain Patient Disposition: Home, Self-Care Instructions: Gastritis (ED) Additional Instructions: Your laboratory evaluation was normal. Your chest x-ray was normal. At this time I do not know why you had nausea and vomiting after eating. The burning sensation is most likely caused by increased acid in her stomach (gastritis) and acid going on to your esophagus (esophagitis). If these symptoms returned take Tums as directed on the bottle. Follow-up with your doctor in 2 days. Please return to the emergency department if your symptoms get worse or if you develop any symptoms that are concerning to you. Prescriptions: No Action albuterol sulfate [Ventolin HFA] 90 mcg/actuation HFA aerosol inhaler 2 puff inhalation Q4-6H PRN (Reason: shortness of breath or wheezing) Qty: 1 RF: 0 hydroxyzine HCl 50 mg tablet 50 mg PO BEDTIME PRN (Reason: Anxiety/ sleep) Qty: 14 RF: 0 albuterol sulfate 90 mcg/actuation aerosol powdr breath activated 2 inh inhalation Q4H PRN (Reason: shortness of breath or wheezing) Qty: 1 RF: 0 prednisone 50 mg tablet 50 mg PO DAILY Qty: 4 RF: 0 ibuprofen 600 mg tablet 600 mg PO Q6H PRN (Reason: pain) Qty: 20 RF: 0 ondansetron HCl [Zofran] 4 mg tablet 4 mg PO Q8H PRN (Reason: nausea and vomiting) Qty: 10 RF: 0 pantoprazole [Protonix] 40 mg tablet,delayed release (DR/EC) 40 mg PO DAILY Qty: 20 RF: 0 PMFSH Past Medical History PMFSH Narrative: Past medical history: Asthma, anxiety, lumbar sprain. Past surgical history: Appendectomy. Social history: Patient is employed. He smokes 1/2 pack of cigarettes per day x9 years. He states that he only occasionally drinks alcohol. States that he occasionally smokes marijuana. Medical History Anxiety Asthma Lumbar sprain Social History Social History Alcohol intake: never Patient Tobacco Use Status: Current everyday Tobacco user Substance Use Type: Marijuana Advance Directives: No Advance Directives Information Provided: No
== END 2021-03-23 08:26 | disposition home or self-care (01) ==
PROVIDERS: Emergency Provider Emergency Medicine Emergency Medical Services
DX: R11.2 Nausea with vomiting, unspecified (principal); R10.13 Epigastric pain; J45.909 Unspecified asthma, uncomplicated; F17.210 Nicotine dependence, cigarettes, uncomplicated; Z79.899 Other long term (current) drug therapy
CPT/HCPCS: 36415; 71046; 80048; 80076; 83690; 85025; 99283

== ENCOUNTER 2021-04-06 09:07 | Emergency (ER) | payer OTHER, SELFPAY ==
[2021-04-06 09:39] VITALS: BP 141/85; PULSE 107; RESP 18; TEMP 37.1; O2SAT 96; BMI 33.3
--- NOTE | 2021-04-06 10:52 | ED.GENADULT ---
HPI - General Adult General Chief complaint: Nausea/Vomiting/Diarrhea Stated complaint: vomiting, abd pain Time Seen by Provider: 04/06/21 12:10 History of Present Illness HPI narrative: Patient presents to the ED for Upper abdominal pain described as acid burning sensation with nausea and emesis. Patient states history of acid reflux. Patient states presently states abdominal pain is improving. Patient states no fever, chills, dysuria, diarrhea, flank pain, or pain in lower abdomen area. Related Data Previous Rx's Medication Instructions Recorded albuterol sulfate 90 mcg/actuation 2 puff INHALATION Q4-6H PRN #1 ea 10/30/20 aerosol inhaler (Ventolin HFA) albuterol sulfate 90 mcg/actuation 2 inh INHALATION Q4H PRN #1 ea 01/01/21 breath activated powder inhaler prednisone 50 mg tablet 50 mg PO DAILY #4 tab 01/01/21 ibuprofen 600 mg tablet 600 mg PO Q6H PRN #20 tab 03/10/21 hydroxyzine HCl 50 mg tablet 50 mg PO BEDTIME PRN #14 tab 03/15/21 ondansetron HCl 4 mg tablet 4 mg PO Q8H PRN #10 tab 03/21/21 (Zofran) pantoprazole 40 mg tablet,delayed 40 mg PO DAILY #20 tab 03/21/21 release (Protonix) famotidine 20 mg tablet (Pepcid) 20 mg PO BID #20 tab 04/06/21 Allergies Allergy/AdvReac Type Severity Reaction Status Date / Time [place] [LIMES] Allergy Severe Anaphylaxis Verified 10/29/20 21:51 feathers [FEATHERS] Allergy Mild Rash Verified 10/29/20 21:51 Review of Systems Constitutional: Constitutional: Reports as per HPI and Reports no additional constitutional complaints Eyes: Eyes: Reports as per HPI and Reports no additional eye complaints ENT: Reports system reviewed and no additional complaints, except as documented and Reports as per HPI Cardiovascular: Cardiovascular: Reports as per HPI and Reports no additional cardiovascular complaints Respiratory: Respiratory: Reports as per HPI and Reports no additional respiratory complaints Gastrointestinal: Gastrointestinal: Reports as per HPI, Reports no additional gastrointestinal complaints, Reports abdominal pain, Reports heartburn and Reports nausea Genitourinary: Genitourinary: Reports no additional male genitourinary complaints and Reports as per HPI Musculoskeletal: Musculoskeletal: Reports no additional musculoskeletal complaints and Reports as per HPI Integumentary/Breasts: Skin/Breast: Reports system reviewed and no additional complaints, except as docu and Reports as per HPI [facility] Past Medical History Medical History Anxiety Asthma Lumbar sprain Social History Social History Alcohol intake: never Patient Tobacco Use Status: Current everyday Tobacco user Use of substances other than those prescribed or required for medical reasons: Yes Substance Use Type: Marijuana Substance Use Frequency: Occasionally Advance Directives: Yes Advance Directives Information Provided: Yes Advance Directives on File: No Physical Exam Vital Signs: Vital Signs: Last Vital Signs Temp 98.7 F 04/06/21 09:39 Pulse 64 04/06/21 11:19 Resp 18 04/06/21 11:19 BP 136/85 04/06/21 11:19 Pulse Ox 98 04/06/21 11:19 Body Mass Index 33.3 Const: General: cooperative, healthy appearing, comfortable, no acute distress, well developed, alert and awake Orientation/consciousness: oriented to time and patient oriented x3 HENMT: Head: Yes normal to inspection, Yes No palpable skull fracture present, Yes normocephalic, Yes atraumatic and No abrasion Eyes: General: appearance normal, both eyes and all related structures Neck: Neck: Yes normal visual inspection, Yes full ROM, Yes no lymphadenopathy, Yes no meningeal signs, Yes trachea midline, Yes supple and No tender Chest: Chest palpation & inspection: normal inspection of the chest and normal palpation of entire chest wall Breast/axilla inspection: normal inspection of the breasts Resp: Effort & Inspection: normal respiratory effort and able to speak in complete sentences Auscultation: clear to auscultation bilaterally GI: Inspection: Yes normal to inspection and No abdominal wall ecchymosis Palpation (GI): Soft to palpation, not firm, nontender and no guarding : General: No CVA tenderness and Yes no CVA tenderness Back/Spine/Pelvis: Back: no CVA tenderness, No CVA tenderness and No back tenderness Skin: General skin exam: no rashes or lesions noted and elasticity normal Neuro: General: oriented to time, patient oriented x3, gait normal, no meningeal signs and CN's II-XI intact bilaterally Cranial nerves: Yes CN's II-XII intact bilaterally Extrem: General: Yes normal to inspection and Yes full ROM Psych: Appearance: grossly normal, well kempt and not disheveled Course Course Course Narrative: Will give GI cocktail. Labs ordered. Reevaluation(s) Reevaluation #1: Patient feels better after GI cocktail. Patient will be discharged with Pepcid. Labs are normal at baseline. Abdomen soft nontender and benign on palpation. UA negative for UTI. No indication for CT scan. Time: 13:32 Reevaluation #2: Patient will be discharged with Pepcid. Patient was informed to follow-up with PCP for Gastroenterology for endoscopy. Medical Decision Making Lab Data Result diagrams: 04/06/21 10:47 04/06/21 10:47 Labs: Lab Results 04/06/21 04/06/21 04/06/21 Range/Units 10:47 10:47 13:01 WBC 6.7 (4.8-10.8) X10*3/uL RBC 5.01 (4.60-5.80) X10*6/uL Hgb 15.2 (14.0-18.0) g/dl Hct 44.2 (42-52) % MCV 88.2 (80-98) fL MCH 30.3 (27.0-33.0) pg MCHC 34.4 (31.0-36.0) g/dl RDW 12.1 (11.0-16.0) % Plt Count 201 (160-400) X10*3/uL MPV 10.6 (9.4-12.4) fL Immature Gran % (Auto) 0.2 (0.0-0.4) % Neut % (Auto) 63.8 (45-73) % Lymph % (Auto) 21.1 (20-40) % [place] % (Auto) 12.0 H (2-11) % Eos % (Auto) 2.6 (0-4) % Baso % (Auto) 0.3 (0-2) % Lymph # (Auto) 1.4 (1.2-4.9) X10*3/uL [place] # (Auto) 0.8 (0.1-1.2) X10*3/uL Eos # (Auto) 0.2 (0.0-0.4) X10*3/uL Baso # (Auto) 0.0 (0.0-0.2) X10*3/uL Abs Immat Gran (auto) 0.01 (0.00-0.03) X10*3/uL Absolute Neuts (auto) 4.3 (2.0-8.3) X10*3/uL Absolute Nucleated RBC 0.000 (0.0-0.012) X10*3/uL Nucleated RBC % (auto) 0.0 (0.0-0.2) /100WBC Sodium 138 (135-145) mmol/L Potassium 4.5 (3.3-5.1) mmol/L Chloride 105 (96-108) mmol/L Carbon Dioxide 28 (22-29) mmol/L Anion Gap 10 L (12-20) BUN 12 (9-16) mg/dL Creatinine 1.01 (0.5-1.4) mg/dL Estim Creat Clear Calc 117.7 Estimated GFR > 60 Random Glucose 92 (60-115) mg/dL Calcium 10.0 (8.4-10.2) mg/dL Total Bilirubin 0.7 (0.0-1.0) mg/dL Direct Bilirubin 0.3 (0.0-0.5) mg/dL AST 17 (5-37) U/L ALT 25 (0-40) U/L Alkaline Phosphatase 86 (39-117) U/L Total Protein 6.7 (6.5-8.0) g/dL Albumin 4.6 (3.5-5.0) g/dL Lipase 12 (8-78) U/L Urine Color YELLOW Urine Appearance TURBID Urine pH 7.0 (5.0-8.0) Ur Specific [place] 1.010 (1.005-1.025) Urine Protein TRACE (NEG-TRACE) MG/DL Urine Glucose (UA) NEG (NEG) MG/DL Urine Ketones 15 (NEG) MG/DL Urine Blood NEG (NEG) Urine Nitrite NEG (NEG) Ur Leukocyte Esterase NEG (NEG) Discharge Plan Discharge Clinical Impression: Gastroesophageal reflux disease Patient Disposition: Home, Self-Care Instructions: Gastroesophageal Reflux Disease (ED) Additional Instructions: Your blood work came back normal and urine came back negative for infection. Physical exam indicate acid reflux. You will be discharged with Pepcid. Urinary follow-up with PCP for referral to gastroenterology for endoscopy. Return to the ED for any worsening abdominal pain, vomiting blood, rectal bleeding, fever, chills, any abdominal pain radiating to lower quadrants, chest pain, shortness of breath, testicular pain, flank pain, dysuria, hematuria, or any other concerning symptoms. Prescriptions: New famotidine [Pepcid] 20 mg tablet 20 mg PO BID Qty: 20 RF: 0 No Action albuterol sulfate [Ventolin HFA] 90 mcg/actuation HFA aerosol inhaler 2 puff inhalation Q4-6H PRN (Reason: shortness of breath or wheezing) Qty: 1 RF: 0 hydroxyzine HCl 50 mg tablet 50 mg PO BEDTIME PRN (Reason: Anxiety/ sleep) Qty: 14 RF: 0 albuterol sulfate 90 mcg/actuation aerosol powdr breath activated 2 inh inhalation Q4H PRN (Reason: shortness of breath or wheezing) Qty: 1 RF: 0 prednisone 50 mg tablet 50 mg PO DAILY Qty: 4 RF: 0 ibuprofen 600 mg tablet 600 mg PO Q6H PRN (Reason: pain) Qty: 20 RF: 0 ondansetron HCl [Zofran] 4 mg tablet 4 mg PO Q8H PRN (Reason: nausea and vomiting) Qty: 10 RF: 0 pantoprazole [Protonix] 40 mg tablet,delayed release (DR/EC) 40 mg PO DAILY Qty: 20 RF: 0 Referrals: Dinesh Long [Physician] - 2 days (GERD. Endoscopy) Stand Alone Forms: Work/School Release Interventions: ED Discharge Assessment Last Done: 04/06/21 14:02 Discharge Date/Time: 04/06/21 14:09 Print Language: Lao
[2021-04-06 10:54] LABS: MANUAL DIFF FLAG NO
[2021-04-06 10:56] LABS: Basophils Percent Auto 0.3 % (0-2); Eosinophils Absolute Auto 0.2 X10*3/uL (0.0-0.4); Eosinophils Percent Auto 2.6 % (0-4); Hematocrit 44.2 % (42-52); Hemoglobin 15.2 g/dl (14.0-18.0); Imm Gran Abs Auto 0.01 X10*3/uL (0.00-0.03); Imm Gran Pct Auto 0.2 % (0.0-0.4); Lymphocytes Absolute Auto 1.4 X10*3/uL (1.2-4.9); Lymphocytes Percent Auto 21.1 % (20-40); Mean Corpuscular HGB Conc 34.4 g/dl (31.0-36.0); Mean Corpuscular Hemoglobin 30.3 pg (27.0-33.0); Mean Corpuscular Volume 88.2 fL (80-98); Mean Platelet Volume 10.6 fL (9.4-12.4); Monocytes Absolute Auto 0.8 X10*3/uL (0.1-1.2); Neutrophils Absolute Auto 4.3 X10*3/uL (2.0-8.3); Neutrophils Percent Auto 63.8 % (45-73); Platelet Count 201 X10*3/uL (160-400); Red Blood Count 5.01 X10*6/uL (4.60-5.80); Red Cell Distribution Width 12.1 % (11.0-16.0); White Blood Count 6.7 X10*3/uL (4.8-10.8)
--- NOTE | 2021-04-06 11:00 | PC.NURSE ---
Pt alert and oriented x3, vss. Pt reports epigastric pain that he describes as a acid burning sensation with n/v. Pt states he has hx of acid reflux. He denies fever, chills, or diarrhea. He also reports not being around anyone sick. +BS x4, abdomen non-tender on palpation. Pt reports pain is slightly less since arriving to the ed. No apparent distress noted. IV established, meds given as documented. pt resting quietly.
[2021-04-06] MEDS: 0.9 % Sodium Chloride 1,000 ML 999 ML IV (11:06)
[2021-04-06] MEDS: Lidocaine HCl Viscous 2 % 15 ML SOLUTION MUCOUS MEM (11:14)
[2021-04-06] MEDS: PHENobarb/Hyoscy/Atropine/Scop 10 ML ELIXIR PO (11:14)
[2021-04-06] MEDS: Famotidine/PF 20 MG/2 ML VIAL IVPUSH (11:14)
[2021-04-06] MEDS: Magnesium Hydrox/Alum Hydrox 30 ML ORAL.SUSP PO (11:14)
[2021-04-06 11:19] VITALS: BP 136/85; PULSE 64; RESP 18; O2SAT 98
[2021-04-06 11:25] LABS: Alanine Aminotransferase 25 U/L (0-40); Albumin Level 4.6 g/dL (3.5-5.0); Alkaline Phosphatase 86 U/L (39-117); Anion Gap 10 (12-20); Aspartate Amino Transferase 17 U/L (5-37); Bilirubin Direct 0.3 mg/dL (0.0-0.5); Bilirubin Total 0.7 mg/dL (0.0-1.0); Blood Urea Nitrogen 12 mg/dL (9-16); Carbon Dioxide 28 mmol/L (22-29); Chloride 105 mmol/L (96-108); Creatinine Clr Calc Pharmacy 117.7; Estimated Glomerular Filt Rate > 60; Glucose Random 92 mg/dL (60-115); Lipase 12 U/L (8-78); Potassium 4.5 mmol/L (3.3-5.1); Sodium 138 mmol/L (135-145); Total Protein 6.7 g/dL (6.5-8.0)
[2021-04-06 13:08] LABS: Appearance Urine TURBID; Color Urine YELLOW; Glucose Urine UA NEG (NEG); Leukocyte Esterase Urine NEG (NEG); Nitrite Urine NEG (NEG); Urine Blood NEG (NEG); Urine Ketones 15 MG/DL (NEG); Urine Protein TRACE MG/DL (NEG-TRACE)
--- NOTE | 2021-04-06 13:30 | PC.NURSE ---
Pt reports pain is much improved since receiving meds. His vital signs remains stable. No apparent distress noted, resting quietly.
== END 2021-04-06 14:09 | disposition home or self-care (01) ==
PROVIDERS: Physician Assistant; Emergency Provider Internal Medicine; PCP Internal Medicine
DX: K21.9 Gastro-esophageal reflux disease without esophagitis (principal); R11.2 Nausea with vomiting, unspecified; F17.210 Nicotine dependence, cigarettes, uncomplicated
CPT/HCPCS: 36415; 80053; 81003; 82248; 83690; 85025; 96361; 96374; 99284

== ENCOUNTER 2021-04-21 23:21 | Emergency (ER) | payer OTHER, SELFPAY ==
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
[2021-04-21 23:24] VITALS: BP 129/76; PULSE 84; RESP 18; TEMP 36.9; O2SAT 98; BMI 33.0
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
== END 2021-04-21 23:45 | disposition left against medical advice (07) ==
PROVIDERS: Emergency Provider Emergency Medicine
DX: S89.91XA Unspecified injury of right lower leg, initial encounter (principal); W50.0XXA Accidental hit or strike by another person, initial encounter; Y93.61 Activity, american tackle football; Y92.328 Other athletic field as the place of occurrence of the external cause; Y99.9 Unspecified external cause status
CPT/HCPCS: 73590; 73610; 99282; 99283

== ENCOUNTER 2021-05-08 06:32 | Emergency (ER) | payer OTHER, SELFPAY ==
--- NOTE | ~2021-05-08 | XR_ITS ---
EXAMINATION: XR CHEST CLINICAL INFORMATION: Cough. COMPARISON: Chest 03/23/2021 TECHNIQUE: Frontal view of the chest was obtained. FINDINGS: No significant abnormality is noted involving the heart, lungs, mediastinum, bony thorax or soft tissues. XR/XR chest 1V IMPRESSION: Unremarkable chest examination.
[2021-05-08 07:12] VITALS: BP 146/67; PULSE 75; RESP 16; TEMP 36.8; O2SAT 98; BMI 33.3
[2021-05-08 07:38] LABS: COVID-19 Test Negative (Negative)
--- NOTE | 2021-05-08 07:57 | ED.URI ---
HPI - URI/Sore Throat General Chief Complaint: Upper Respiratory Symptoms Stated Complaint: congestion, phlegm Time Seen by Provider: 05/08/21 07:56 Source: patient Mode of arrival: ambulatory Limitations: no limitations History of Present Illness HPI Narrative: 25 years old male came in for evaluation of upper respiratory infection symptoms. Patient is complaining of scratchy throat, feeling congestion, productive cough with yellow sputum. No headache, no neck stiffness, no chest pain, no abdominal pain, no nausea, no vomiting, no diarrhea. No sick contacts, no recent travel. Patient is not vaccinated for COVID. Related Data Previous Rx's Medication Instructions Recorded albuterol sulfate 90 mcg/actuation 2 puff INHALATION Q4-6H PRN #1 ea 10/30/20 aerosol inhaler (Ventolin HFA) albuterol sulfate 90 mcg/actuation 2 inh INHALATION Q4H PRN #1 ea 01/01/21 breath activated powder inhaler prednisone 50 mg tablet 50 mg PO DAILY #4 tab 01/01/21 ibuprofen 600 mg tablet 600 mg PO Q6H PRN #20 tab 03/10/21 hydroxyzine HCl 50 mg tablet 50 mg PO BEDTIME PRN #14 tab 03/15/21 ondansetron HCl 4 mg tablet 4 mg PO Q8H PRN #10 tab 03/21/21 (Zofran) pantoprazole 40 mg tablet,delayed 40 mg PO DAILY #20 tab 03/21/21 release (Protonix) famotidine 20 mg tablet (Pepcid) 20 mg PO BID #20 tab 04/06/21 albuterol sulfate 90 mcg/actuation 1 inh INHALATION QID PRN #8.5 g 05/08/21 aerosol inhaler azithromycin 250 mg tablet See Rx Instructions .ROUTE 05/08/21 (Zithromax Z-Derek) .COMPLEX #6 tab prednisone 20 mg tablet 20 mg PO BID #10 tab 05/08/21 Allergies Allergy/AdvReac Type Severity Reaction Status Date / Time [place] [LIMES] Allergy Severe Anaphylaxis Verified 04/21/21 23:24 feathers [FEATHERS] Allergy Mild Rash Verified 04/21/21 23:24 Review of Systems Review of Systems: All other systems are reviewed and are negative Constitutional: Reports as per HPI and Reports no additional constitutional complaints Eyes: Reports as per HPI and Reports no additional eye complaints Reports system reviewed and no additional complaints, except as documented Cardiovascular: Reports as per HPI and Reports no additional cardiovascular complaints Respiratory: Reports as per HPI and Reports no additional respiratory complaints Gastrointestinal: Reports as per HPI and Reports no additional gastrointestinal complaints Genitourinary: Reports no additional female genitourinary complaints Musculoskeletal: Reports no additional musculoskeletal complaints Skin/Breast: Reports system reviewed and no additional complaints, except as docu Psychiatric: Reports no additional psychiatric complaints Endocrine: Reports no additional endocrine complaints Hematologic/Lymphatic: Reports no additional hematologic/lymphatic complaints Allergic/Immunologic: Reports no additional allergic/immunologic complaints Reports system reviewed and no additional complaints, except as documented and Reports Abnormal speech present FORMERLY [facility], [facility] Past Medical History Medical History Anxiety Asthma Lumbar sprain Social History Social History Alcohol intake: never Patient Tobacco Use Status: Current everyday Tobacco user Substance Use Type: Marijuana Advance Directives: No Advance Directives Information Provided: Yes Physical Exam Vital Signs: Vital Signs: Last Vital Signs Temp 98.2 F 05/08/21 07:12 Pulse 75 05/08/21 07:12 Resp 16 05/08/21 07:12 BP 146/67 H 05/08/21 07:12 Pulse Ox 98 05/08/21 07:12 Body Mass Index 33.3 Vital signs have been reviewed as appeared to be correct. Blood pressure normal. Heart rate normal. Respiration rate normal. Temperature normal. Oxygen saturation normal. Appearance: Alert. Oriented X3. No acute distress. Head: Normal external exam. Normocephalic. Atraumatic. No Schwartz signs noted. No raccoon eyes noted Eyes: PERRLA. EOMI. Conjunctiva and sclera normal. Eyelids normal. ENT: TM's Normal. Pharynx normal. Uvula midline. Moist mucous membranes. No trismus noted. No drooling noted. No muffled voice noted. Neck: Normal inspection. Neck supple. FROM. No adenopathy. Thyroid Normal. No meningeal signs. No neck mass noted. CVS: Normal heart rate and rhythm. Heart sound normal. No murmurs noted. Pulses normal throughout. Respiratory: No respiratory distress. Painless inspiration. Breath sounds normal. Mild diffuse expiratory wheezes patient with prolonged expiration, no rhonchi noted. Chest nontender. No accessory muscle usage noted or decreased air movement noted. Abdomen: Soft and nontender. Bowel sounds normal in all 4 quadrants. No distention noted. No organomegaly noted. No visible injury noted. Back: No CVA tenderness. Full range of motion noted. Skin: Skin warm and dry. Normal skin color. Normal skin turgor. No rashes/lesions/lacerations noted. Extremities: No lower extremity edema. Extremities exhibit normal range of motion. Extremities nontender. Neuro: Oriented X 3. Cranial nerve exam: II-XII are grossly intact No motor deficit. No sensory deficit. Reflexes normal. Course Course Course Narrative: Assessment and plan. Upper respiratory symptoms, physical exam is consistent with acute bronchitis. Start the patient on Z-Derek/prednisone/albuterol. MDM - URI/Sore Throat Medical Records Attestation: I reviewed the patient's medical records. Lab Data Attestation: I reviewed the patient's lab results. Labs: Lab Results 05/08/21 05/08/21 Range/Units 07:16 08:45 COVID-19 (PETR) Negative (Negative) COVID-19 Clin Com See Note S. pyogenes GrpA TARAN Negative (Negative) Imaging Data Chest x-ray: Radiologist's impression: no acute pathology Discharge Plan Discharge Clinical Impression: Bronchitis Patient Disposition: Home, Self-Care Instructions: Acute Bronchitis (ED) Prescriptions: New azithromycin [Zithromax Z-Derek] 250 mg tablet See Rx Instructions .ROUTE .COMPLEX Qty: 6 RF: 0 prednisone 20 mg tablet 20 mg PO BID Qty: 10 RF: 0 albuterol sulfate 90 mcg/actuation HFA aerosol inhaler 1 inh inhalation QID PRN (Reason: shortness of breath or wheezing) Qty: 8.5 RF: 0 No Action albuterol sulfate [Ventolin HFA] 90 mcg/actuation HFA aerosol inhaler 2 puff inhalation Q4-6H PRN (Reason: shortness of breath or wheezing) Qty: 1 RF: 0 hydroxyzine HCl 50 mg tablet 50 mg PO BEDTIME PRN (Reason: Anxiety/ sleep) Qty: 14 RF: 0 albuterol sulfate 90 mcg/actuation aerosol powdr breath activated 2 inh inhalation Q4H PRN (Reason: shortness of breath or wheezing) Qty: 1 RF: 0 prednisone 50 mg tablet 50 mg PO DAILY Qty: 4 RF: 0 ibuprofen 600 mg tablet 600 mg PO Q6H PRN (Reason: pain) Qty: 20 RF: 0 ondansetron HCl [Zofran] 4 mg tablet 4 mg PO Q8H PRN (Reason: nausea and vomiting) Qty: 10 RF: 0 pantoprazole [Protonix] 40 mg tablet,delayed release (DR/EC) 40 mg PO DAILY Qty: 20 RF: 0 famotidine [Pepcid] 20 mg tablet 20 mg PO BID Qty: 20 RF: 0 Referrals: Charity Hill MD [Primary Care Provider] - 2 days
[2021-05-08 09:01] LABS: IDNOW Serial# 9DD0AD1C; Strep A Nucleic Acid Negative (Negative)
== END 2021-05-08 09:54 | disposition home or self-care (01) ==
PROVIDERS: Emergency Provider Emergency Medicine; PCP Internal Medicine
DX: J20.8 Acute bronchitis due to other specified organisms (principal); F12.90 Cannabis use, unspecified, uncomplicated; Z20.822 Contact with and (suspected) exposure to COVID-19; Z79.899 Other long term (current) drug therapy
CPT/HCPCS: 36415; 71045; 87635; 87651; 99283

== ENCOUNTER 2021-05-10 14:18 | Outpatient (REF) | payer OTHER, SELFPAY | END 2021-05-10 14:19 | disposition home or self-care (01) | LOC: HO.LNP 14:18 | PROVIDERS: Visit Provider Physician Assistant Medical | DX: Z20.822 Contact with and (suspected) exposure to COVID-19 (principal) | CPT/HCPCS: U0003; U0005 ==

== ENCOUNTER 2021-08-09 13:08 | Emergency (ER) | payer OTHER, SELFPAY ==
[2021-08-09 14:01] VITALS: BP 144/82; PULSE 75; RESP 19; TEMP 36.1; O2SAT 99; BMI 33.3
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
== END 2021-08-09 15:01 | disposition home or self-care (01) ==
PROVIDERS: Emergency Provider Emergency Medicine
DX: S39.012A Strain of muscle, fascia and tendon of lower back, initial encounter (principal); V89.2XXA Person injured in unspecified motor-vehicle accident, traffic, initial encounter; Y93.9 Activity, unspecified; Y92.410 Unspecified street and highway as the place of occurrence of the external cause; Y99.9 Unspecified external cause status
CPT/HCPCS: 99283

== ENCOUNTER 2021-09-05 05:18 | Emergency (ER) | payer OTHER, SELFPAY | END 2021-09-05 06:24 | disposition left against medical advice (07) | PROVIDERS: Emergency Provider Emergency Medicine | DX: J45.909 Unspecified asthma, uncomplicated (principal) ==

== ENCOUNTER 2021-11-29 17:10 | Emergency (ER) | payer OTHER, SELFPAY ==
[2021-11-29 17:51] VITALS: BP 124/88; PULSE 86; RESP 16; TEMP 37.1; O2SAT 98; BMI 40.7
[2021-11-29 18:22] LABS: COVID-19 Test Negative (Negative); IDNOW Serial# 16C4AD1C; Influenza A Negative (Negative); Influenza B2 Negative (Negative)
--- NOTE | 2021-11-29 20:17 | ED_ITS ---
HPI - URI/Sore Throat General Chief Complaint: Upper Respiratory Symptoms Stated Complaint: congestion Time Seen by Provider: 11/29/21 20:17 Source: patient Mode of arrival: ambulatory History of Present Illness HPI Narrative: 26-year-old male with past medical history of anxiety, asthma, allergies, presenting to the ED complaining of nonproductive cough, sore throat, congestion, rhinorrhea, sinus pressure x3 days. Also reports slight ear pain x today. Denies fever, chills, SOB, CP, recent travel, sick contacts MD elicited complaint: rhinorrhea, nasal congestion and sinus pain Onset (ago): day(s) Related Data Previous Rx's Medication Instructions Recorded albuterol sulfate 90 mcg/actuation 2 puff INHALATION Q4-6H PRN #1 ea 10/30/20 aerosol inhaler (Ventolin HFA) albuterol sulfate 90 mcg/actuation 2 inh INHALATION Q4H PRN #1 ea 01/01/21 breath activated powder inhaler ibuprofen 600 mg tablet 600 mg PO Q6H PRN #20 tab 03/10/21 hydroxyzine HCl 50 mg tablet 50 mg PO BEDTIME PRN #14 tab 03/15/21 ondansetron HCl 4 mg tablet 4 mg PO Q8H PRN #10 tab 03/21/21 (Zofran) pantoprazole 40 mg tablet,delayed 40 mg PO DAILY #20 tab 03/21/21 release (Protonix) famotidine 20 mg tablet (Pepcid) 20 mg PO BID #20 tab 04/06/21 albuterol sulfate 90 mcg/actuation 1 inh INHALATION QID PRN #8.5 g 05/08/21 aerosol inhaler fluticasone propionate 110 1 puff INHALATION BID #12 g 05/18/21 mcg/actuation HFA aerosol inhaler (Flovent HFA) methocarbamol 750 mg tablet 750 mg PO TID PRN #30 tab 08/09/21 naproxen 500 mg tablet,delayed 500 mg PO BID PRN #20 tab 08/09/21 release (EC-Naproxen) fluticasone propionate 50 2 spray INTRANASAL DAILY #16 g 11/29/21 mcg/actuation nasal spray,suspension (Flonase Allergy Relief) Allergies Allergy/AdvReac Type Severity Reaction Status Date / Time [place] [LIMES] Allergy Severe Anaphylaxis Verified 11/01/21 10:43 feathers [FEATHERS] Allergy Mild Rash Verified 11/01/21 10:43 Review of Systems Review of Systems: Constitutional: No Fever, No Chills ENT/Mouth: No Ear Pain, + Nasal Congestion, No Sinus Pain, No Hoarseness, + sore throat, + Rhinorrhea, No Swallowing Difficulty Cardiovascular: No Chest Pain, No SOB Respiratory: + Cough, No Sputum, No Wheezing Gastrointestinal: No Nausea, No Vomiting, No Abdominal pain Genitourinary: No Dysuria, No Hematuria, No Flank Pain Musculoskeletal: No joint pain, No Myalgias, No Joint Swelling Skin: No Skin Lesions, No rash Neuro: No Weakness, No Numbness Yes all other systems are reviewed and are negative [facility] Past Medical History Attestation statement: The following information was validated with the patient. Medical History Annual physical exam Anxiety Asthma Lumbar sprain Seasonal allergies Family History Family History Other Mental health disorder Social History Social History Housing: Apartment Alcohol intake: never Patient Tobacco Use Status: Current everyday Tobacco user Tobacco use type: Cigarette Cigarette Packs Per Day: 1 Substance Use Type: Marijuana Advance Directives: No Current occupational status: unemployed Physical Exam Vital Signs: Vital Signs: Last Vital Signs Temp 98.7 F 11/29/21 17:51 Pulse 86 11/29/21 17:51 Resp 16 11/29/21 17:51 BP 124/88 11/29/21 17:51 Pulse Ox 98 11/29/21 17:51 BMI result Body Mass Index 40.7 Const: General: cooperative, healthy appearing, comfortable, no acute distress, well developed, alert and awake Orientation/consciousness: patient oriented x3 Limitations: no limitations HEENT: Head: Yes normal to inspection Ears: hearing grossly normal bilaterally, external ears normal, TM's normal bilaterally, TM normal on the right, TM normal on the left and mastoids normal General nose exam: Normal external nose present and Nasal discharge present Face and sinus: Yes normal facial exam Mouth: Normal oral and palatal mucosa present Throat: Yes posterior oropharynx normal, Yes tonsils normal, Yes uvula midline, No peritonsillar mass, No uvula laterally displaced and No uvular edema Eyes: General: appearance normal, both eyes and all related structures EOM: EOMs intact bilaterally Neck: Neck: Yes normal visual inspection and Yes no meningeal signs Resp: Effort & Inspection: normal respiratory effort and no respiratory distress Auscultation: clear to auscultation bilaterally, no rhonchi and no wheezes Cardio: Rate: regular rate Heart sounds: S1 normal heart sound present and S2 normal heart sound present Skin: Rashes: no rashes Wounds: no wounds Neuro: General: patient oriented x3 and no meningeal signs Gait exam (Neuro): Normal gait present Extrem: General: Yes normal to inspection Course Course Course Narrative: COVID-19 and influenza negative. Results discussed with patient including worrisome signs and symptoms and strict return precautions MDM - URI/Sore Throat MDM Narrative Medical decision making narrative: 26-year-old male with past medical history of anxiety, asthma, allergies, presenting to the ED complaining of nonproductive cough, sore throat, congestion, rhinorrhea, sinus pressure x3 days. On exam vital signs stable, NAD/nontoxic appearing, physical exam as above. Concern for viral illness. Low concern for pneumonia, exam not consistent with strep pharyngitis Plan: COVID-19/influenza testing Differential Diagnosis Differential diagnosis: Likely upper respiratory infection, sinusitis, viral infection, influenza and pharyngitis Medical Records Attestation: I reviewed the patient's medical records. Lab Data Attestation: I reviewed the patient's lab results. Labs: Lab Results 11/29/21 11/29/21 Range/Units 17:55 17:55 COVID-19 (PETR) Negative (Negative) COVID-19 Clin Com See Note Influenza Type A (TARAN) Negative (Negative) Influenza Type B (TARAN) Negative (Negative) Influenza A & B Note See Note Discharge Plan Discharge Clinical Impression: Upper respiratory infection Patient Disposition: Home, Self-Care Instructions: Viral Syndrome (ED) Additional Instructions: You tested negative for COVID-19 and the flu. Flonase as a nasal decongestant, take as prescribed. In addition take Tylenol and Motrin Please follow-up with your doctor. If symptoms persist or worsen, he develops fever, shortness of breath, productive please return to the ED Prescriptions: New fluticasone propionate [Flonase Allergy Relief] 50 mcg/actuation spray,suspension 2 spray intranasal DAILY Qty: 16 0RF Rx Instructions: administer into each nostril No Action albuterol sulfate [Ventolin HFA] 90 mcg/actuation HFA aerosol inhaler 2 puff inhalation Q4-6H PRN (Reason: shortness of breath or wheezing) Qty: 1 0RF hydroxyzine HCl 50 mg tablet 50 mg PO BEDTIME PRN (Reason: Anxiety/ sleep) Qty: 14 0RF albuterol sulfate 90 mcg/actuation aerosol powdr breath activated 2 inh inhalation Q4H PRN (Reason: shortness of breath or wheezing) Qty: 1 0RF ibuprofen 600 mg tablet 600 mg PO Q6H PRN (Reason: pain) Qty: 20 0RF ondansetron HCl [Zofran] 4 mg tablet 4 mg PO Q8H PRN (Reason: nausea and vomiting) Qty: 10 0RF pantoprazole [Protonix] 40 mg tablet,delayed release (DR/EC) 40 mg PO DAILY Qty: 20 0RF famotidine [Pepcid] 20 mg tablet 20 mg PO BID Qty: 20 0RF albuterol sulfate 90 mcg/actuation HFA aerosol inhaler 1 inh inhalation QID PRN (Reason: shortness of breath or wheezing) Qty: 8.5 0RF methocarbamol 750 mg tablet 750 mg PO TID PRN (Reason: muscle spasm) Qty: 30 0RF naproxen [EC-Naproxen] 500 mg tablet,delayed release (DR/EC) 500 mg PO BID PRN (Reason: pain) Qty: 20 0RF Flovent HFA 110 mcg/actuation HFA aerosol inhaler 1 puff inhalation BID Qty: 12 3RF Referrals: Charity Hill MD [Primary Care Provider] - 1 week (As needed) Interventions: ED Discharge Assessment Last Done: 11/29/21 20:25 Discharge Date/Time: 11/29/21 20:28
== END 2021-11-29 20:28 | disposition home or self-care (01) ==
PROVIDERS: Emergency Provider Emergency Medicine; PCP Internal Medicine
DX: J06.9 Acute upper respiratory infection, unspecified (principal); H92.03 Otalgia, bilateral; R05.9 Cough, unspecified; F17.210 Nicotine dependence, cigarettes, uncomplicated; Z20.822 Contact with and (suspected) exposure to COVID-19; Z71.6 Tobacco abuse counseling; Z79.899 Other long term (current) drug therapy
CPT/HCPCS: 87502; 87635; 99283

== ENCOUNTER 2021-12-29 03:29 | Emergency (ER) | payer OTHER, SELFPAY ==
[2021-12-29 04:11] VITALS: BP 147/85; PULSE 83; RESP 20; TEMP 37.2; O2SAT 98; BMI 36.6
[2021-12-29 04:46] LABS: COVID-19 Test Negative (Negative); IDNOW Serial# 16C4AD1C; Influenza A Negative (Negative); Influenza B2 Negative (Negative); Strep A Nucleic Acid Negative (Negative)
== END 2021-12-29 06:07 | disposition left against medical advice (07) ==
PROVIDERS: Emergency Provider Emergency Medicine
DX: J02.9 Acute pharyngitis, unspecified (principal); Z20.822 Contact with and (suspected) exposure to COVID-19
CPT/HCPCS: 87502; 87635; 87651; 99283

== ENCOUNTER 2023-08-20 14:13 | Emergency (ER) | payer OTHER, SELFPAY | END 2023-08-20 15:53 | disposition left against medical advice (07) | PROVIDERS: Emergency Provider Emergency Medicine | DX: R07.9 Chest pain, unspecified (principal) | CPT/HCPCS: 93005; 99282; 99283 ==

== ENCOUNTER → 2023-08-20 14:15 | Outpatient (BNV) | payer OTHER, SELFPAY | PROVIDERS: Emergency Provider Emergency Medicine; Visit Provider Internal Medicine Cardiovascular Disease | DX: R07.9 Chest pain, unspecified (principal) | CPT/HCPCS: 93010 ==